=== PATIENT | male | born 1995 | race Two or more races ===

== ENCOUNTER 2021-07-10 23:26 | Emergency (ER) | payer MEDICAID, OTHER ==
[~2021-07-10] VITALS: Ht 185.4 cm; Wt 88.5 kg
[2021-07-11] MEDS ORDERED: ALBUAER3 IN ×2 (01:26→23:46)
[2021-07-11] MEDS ORDERED: IBUP800T27 PO ×2 (01:26→23:46)
[2021-07-11] MEDS ORDERED: GUAI600T23 PO ×2 (01:26→23:46)
[2021-07-11 05:11] VITALS: BP 122/79
== END 2021-07-11 05:14 | disposition home or self-care (01) ==
LOC: EDBD 23:26 → ER 23:26
DX: J06.9 Acute upper respiratory infection, unspecified (principal)